=== PATIENT | female | born 1985 | race Caucasian/White ===

== ENCOUNTER 2017-01-15 18:10 | Emergency (ER) | payer SELFPAY ==
[~2017-01-15] VITALS: Ht 160 cm; Wt 77.0 kg
[~2017-01-15 18:10] MED LIST: ASCO500C7 PO; FER325 PO; IBUP-1542 PO; MECL25TA2 PO
[2017-01-15 18:12] VITALS: Ht 160 cm; Wt 77.0 kg
[2017-01-15] MEDS ORDERED: KETOROLAC 30 MG INJ IV STA (20:03)
[2017-01-15] MEDS ORDERED: METOCLOPRAMIDE 10 MG INJ IV STA (20:03)
[2017-01-15] MEDS ORDERED: DIPHENHYDRAMINE 50 MG INJ IV STA (20:03)
[2017-01-15] MEDS ORDERED: SOD CHLORIDE 0.9% 1,000 ML IV STA (20:03)
--- NOTE | 2017-01-15 21:33 | ERD ---
ER Documentation Chief Complaint Date/Time DATE: 01/15/17 TIME: 21:33 Chief Complaint headache x 11 days HPI 31-year-old female presents to emergency department for 11 day history of headache not responding to her usual treatment. Patient reports that this is not the worst headache she has ever have, she is unsure of the exact time that headaches started. States she has been using Excedrin and ibuprofen with little relief of symptoms. She reports dizziness and fatigue, states she gets approximately 10 headaches a month, she has gotten headaches around her menstrual period. Patient reports the pain is sharp pulsating in her temples and radiates to that nape of her neck. She denies any head injury, cervical injury, denies any nausea, vomiting, reports no photosensitivity. ROS All systems reviewed and are negative except as per history of present illness. Medications Home Meds Active Scripts Ibuprofen* (Motrin*) 800 Mg Tab, 800 MG PO Q8, #30 TAB Prov:ELVIRANIKASHERIE 01/15/17 Meclizine Hcl* (Antivert*) 25 Mg Tablet, 25 MG PO Q6H Y for DIZZINESS, #20 TAB Prov:EZIO,HARRY C 03/30/16 Ibuprofen* (Motrin*) 600 Mg Tab, 600 MG PO Q6, #30 TAB Prov:EZIO,HARRY C 03/30/16 Ascorbic Acid* (Vitamin C*) 500 Mg Capsule.sa, 500 MG PO BID for 30 Days, CAP Prov:SHAW,BORNA 04/01/14 Ferrous Sulfate* (Ferrous Sulfate*) 325 Mg Tabec, 325 MG PO BID for 30 Days, TAB Prov:DEO SQUIRESA 04/01/14 Allergies Allergies: Coded Allergies: No Known Allergy (Unverified , 10/12/14) PMhx/Soc History of Surgery: Yes (caesarian section;GALL BLADDER.) Anesthesia Reaction: No Hx Neurological Disorder: No Hx Respiratory Disorders: No Hx Cardiac Disorders: No Hx Psychiatric Problems: No Hx Miscellaneous Medical Probl: Yes (hx of blood transfusion due to low hgb level; heavy meanstrual periods) Hx Alcohol Use: No Hx Substance Use: No Hx Tobacco Use: No Smoking Status: Never smoker Physical Exam Vitals Vital Signs Date Time Temp Pulse Resp B/P Pulse Ox O2 Delivery O2 Flow Rate FiO2 01/15/17 22:24 78 20 109/58 99 Room Air 01/15/17 18:12 98.5 83 18 126/71 98 Vitals stable, triage notes are Physical Exam Const: Well-nourished, well hydrated, no acute Head: Atraumatic Eyes: Normal Conjunctiva, PERRLA, EOMI, no nystagmus ENT: Normal External Ears, Nose and Mouth. Mucous membranes Neck: Full range of motion..~ No meningismus. Resp: Respirations even and unlabored, no respiratory distress Cardio: Abd: Skin: Back: Ext: Neur: Neuro: M/S: Alert and oriented Face: EOMI, face and pharynx with normal sensation and function Motor: Normal strength throughout Sensation: Normal sensation throughout Speech: Normal Cerebel: Normal coordination Normal gait Normal finger to nose DTR: 2+ and symmetric upper/lower extremities Psych: Normal Mood and Affect Results 24 hrs Current Medications Medications (Trade) Dose Ordered Sig/Yesi Route PRN Reason Start Time Stop Time Status Last Admin Dose Admin Sodium Chloride (NS) 1,000 ml @ 1,000 mls/hr Q1H STAT IV 01/15/17 20:03 01/15/17 21:02 DC 01/15/17 20:56 Metoclopramide HCl (Reglan) 10 mg ONCE STAT IV 01/15/17 20:03 01/15/17 20:05 DC 01/15/17 20:57 Ketorolac Tromethamine (Toradol) 30 mg ONCE STAT IV 01/15/17 20:03 01/15/17 20:05 DC 01/15/17 20:57 Diphenhydramine HCl (Benadryl) 25 mg ONCE STAT IV 01/15/17 20:03 01/15/17 20:05 DC 01/15/17 20:57 Procedures/MDM This 31-year-old female presents to emergency department with complaint of headache 11 days, headache is not responding to her normal treatment of Motrin and Excedrin. Pain is temporal pulsating and sharp, radiating to occipital skull without scalp tenderness. I have no suspicion for a dental infection, subarachnoid bleed, subdural or epidural hematoma, intracranial bleed or tumor. Cranial nerves intact 1 through 12. No suspicion for meningitis patient has no focal neurological deficits, pain is not irretractable. Giant cell arteritis is not suspected. Patient will treated in emergency department with a liter of normal saline, 15 mg IV Toradol, 50 mg IV Benadryl, and 10 mg IV Reglan. Patient reassessed after 90 minutes with headache fully resolved. Patient will be discharged home with 800 mg of ibuprofen 1 tab p.o. 3 times daily, instructed to follow-up with primary care physician for full evaluation of headache, keep a headache journal, stay hydrated, return to emergency department for nausea, vomiting, change in vision or behavior. I feel the patient is stable for discharge at this time with outpatient management as discussed above. I have discussed results, examination findings, the treatment plan with the patient and family present prior to discharge. Indications for emergent reevaluation, side effects of medication were also discussed. All questions were answered. Patient verbalizes understanding and agrees with plan of care. Departure Diagnosis: Primary Impression: Headache Headache type: unspecified Headache chronicity pattern: chronic headache Intractability: not intractable Qualified Code: R51 - Chronic nonintractable headache, unspecified headache type Condition: Good Patient Instructions: Self-Care for Headaches Additional Instructions: Thank you for for coming to [facility] for your care today. Please ask your nurse or provider if you have questions about your care today and do not leave until all your questions have been answered. Please use any medications given as directed and follow-up with your doctor (or the doctor you were referred to) in the next 2-3 days. If you do not have a primary care doctor you may follow up at the [facility] (listed below). You may also use motrin and tylenol as needed for fever and/or pain unless instructed otherwise by your provider or nurse. Indications for more urgent follow-up have been discussed, but you may return to the Emergency Department at ANY time for any worrisome or worsening symptoms. If you have abdominal pain, please know that no test or exam you received is perfect and you should follow up within 8 hours for continued pain. If you had any imaging studies today, such as an X-Ray or CT Scan, these studies will be reviewed later by a radiologist. You will be called if there are important findings that were not identified today, so make sure the contact information you provided at registration is correct. If you received any narcotic pain control medicine today, such as Vicodin, Morphine or Dilaudid, your coordination and judgment may be affected for a number of hours. Please do not drive or operate heavy machinery, and you may want someone to assist you at home. If you were given a prescription for narcotic medication, be aware that it is very addictive- use sparingly and only if necessary. SHERIE FELIX Jan 15, 2017 21:33
[2017-01-15] MEDS ORDERED: IBUP800T25 PO (22:05)
[2017-01-15 22:24] VITALS: BP 109/58; PULSE 78; RESP 20
== END 2017-01-15 22:25 | disposition home or self-care (01) ==
LOC: FTE 18:10
DX: R51 Headache (principal)
CPT/HCPCS: 36415; 96374; 96375; 99284; J1200; J1885; J2765; J7030